=== PATIENT | male | born 1950 | race Caucasian/White ===

== ENCOUNTER 2018-09-23 02:38 | Emergency (ER) | payer MEDICARE, OTHER ==
[2018-09-23 02:49] VITALS: RESP 16
[2018-09-23] MEDS ORDERED: HYDROcodone/APAP 5-325MG 1 EACH TAB PO STA (02:54)
--- NOTE | 2018-09-23 04:00 | XR ---
EXAM: XR Pelvis Complete, 3 or More Views CLINICAL HISTORY: ITS.REASON XR Reason: Pain TECHNIQUE: Frontal and lateral or oblique views of the pelvis. COMPARISON: No relevant prior studies available. FINDINGS: Bones/joints: Unremarkable. No acute fracture. No dislocation. Soft tissues: Unremarkable. IMPRESSION: Normal pelvis x-rays.
--- NOTE | 2018-09-23 04:07 | ED ---
Lower Extremity Injury HPI - General Chief Complaint: Extremity Injury, Lower Stated Complaint: fall Time Seen by Provider: 09/23/18 02:47 Source: patient, EMS Mode of arrival: EMS Limitations: no limitations - History of Present Illness Initial Comments: 67-year-old male patient presents to the emergency department today for evaluation of left hip pain after falling from bed. Patient states that he rolled and landed on the left hip. Denies hitting his head or losing consciousness. Denies any other injuries. He denies any radiation of the pain down his leg. Denies any numbness or tingling to the extremity. Patient was able to ambulate to the ambulance stretcher. Denies taking any medication for his symptoms. Patient denies any headache, neck pain, back pain, chest pain, shortness of breath, dizziness, weakness, abdominal pain, nausea, vomiting, or difficulties with bowel movements or urination. - Related Data Home Medications Medication Instructions Recorded Confirmed Acetaminophen Tab [Tylenol] 650 mg PO Q4H 08/11/13 05/08/16 Hydrocodone/Acetaminophen [[place] 1 tab PO Q6H PRN 08/11/13 05/08/16 5-325] Ranitidine HCl 150 mg PO DAILY 08/11/13 05/08/16 ALPRAZolam [Xanax] 0.25 mg PO TID PRN 02/20/14 05/08/16 Acetaminophen Tab [Tylenol Tab] 1,000 mg PO Q6HR PRN 01/13/16 05/08/16 Cetirizine HCl 10 mg PO DAILY 01/13/16 05/08/16 Cholecalciferol [Vitamin D3 (25 1,000 unit PO DAILY 01/13/16 05/08/16 Mcg = 1000 Iu)] Cholecalciferol [Vitamin D3] 400 unit PO DAILY 01/13/16 05/08/16 Eucerin Cream 1 applic TOPICAL HS 01/13/16 05/08/16 Ibuprofen [Advil] 600 mg PO Q6H PRN 01/13/16 05/08/16 Meloxicam [Mobic] 15 mg PO DAILY 01/13/16 05/08/16 Nystatin [Nystop] 1 applic TOPICAL BID@0800,2000 01/13/16 05/08/16 Sertraline [Zoloft] 100 mg PO DAILY 01/13/16 05/08/16 Amoxic-Pot Clav 875-125Mg 1 tab PO Q12HR 05/08/16 05/08/16 [Augmentin 875-125] Multivit-Min/FA/Lycopen/Lutein 1 tab PO DAILY 05/08/16 05/08/16 [Centrum Silver Men Tablet] Mupirocin 2% Oint [Bactroban 2% 1 applic TOPICAL TID 05/08/16 05/08/16 Oint] Previous Rx's Medication Instructions Recorded Sulfamethox-Tmp 800-160Mg [Bactrim 1 tab PO Q12HR #20 tab 05/13/16 DS 800-160 mg] Allergies Allergy/AdvReac Type Severity Reaction Status Date / Time clindamycin Allergy Unknown Verified 09/23/18 02:49 Review of Systems ROS Statement: Those systems with pertinent positive or pertinent negative responses have been documented in the HPI. ROS Other: All systems not noted in ROS Statement are negative. Past Medical History Past Medical History: Diabetes Mellitus, Hyperlipidemia, Hypertension Additional Past Medical History / Comment(s): brain injury, hepatitis C History of Any Multi-Drug Resistant Organisms: MRSA Date of last positivie culture/infection: 05/08/16 MDRO Source:: LEFT LEG Past Surgical History: No Surgical Hx Reported Past Anesthesia/Blood Transfusion Reactions: No Reported Reaction Past Psychological History: No Psychological Hx Reported Smoking Status: Current every day smoker Past Alcohol Use History: Rare Past Drug Use History: None Reported General Exam Limitations: no limitations General appearance: alert, in no apparent distress, other (This is a well- developed, well-nourished adult male patient in no acute distress. Vital signs upon presentation are temperature 97.3F, pulse 57, respirations 16, blood pressure 151/77, pulse ox 97% on room air.) Eye exam: Present: normal appearance, PERRL, EOMI. Absent: scleral icterus, conjunctival injection, periorbital swelling ENT exam: Present: normal exam, normal oropharynx, mucous membranes moist Respiratory exam: Present: normal lung sounds bilaterally. Absent: respiratory distress, wheezes, rales, rhonchi, stridor Cardiovascular Exam: Present: regular rate, normal rhythm, normal heart sounds. Absent: systolic murmur, diastolic murmur, rubs, gallop, clicks Extremities exam: Present: normal inspection, full ROM, tenderness (Tenderness over the left lateral hip), normal capillary refill, other (There is no shortening or rotation noted to the left lower extremity. Skin to the left leg is pink, warm, and dry. Cap refills less than 3 seconds.). Absent: pedal edema, joint swelling, calf tenderness Course Vital Signs 09/23/18 09/23/18 02:46 04:13 Temperature 97.3 F L 98.4 F Pulse Rate 57 L 61 Respiratory 16 16 Rate Blood Pressure 151/77 148/78 O2 Sat by Pulse 97 98 Oximetry Medical Decision Making - Medical Decision Making 67 year-old male patient presented to the emergency department today for evaluation of left hip pain after falling from bed. Physical examination did reveal tenderness over the lateral hip. There is no leg shortening or rotation. Neurovascular status was intact. X-ray was obtained and showed no acute bony abnormalities. Patient did report improvement of symptoms with pain medication. He was able to ambulate. He'll be discharged home at this time to follow-up with his primary care physician for recheck in 1-2 days. Return parameters were discussed in detail. He verbalizes understanding and agrees with this plan. - Radiology Data Radiology results: report reviewed, image reviewed One view of the pelvis and 2 views of left hip are obtained. Report reviewed in its entirety. Impression by Dr. Bacon shows normal pelvis x-rays Disposition Clinical Impression: Left hip pain Disposition: HOME SELF-CARE Condition: Good Instructions (If sedation given, give patient instructions): Hip Pain (ED) Additional Instructions: Apply ice to the painful areas. Take Tylenol and Motrin for pain control. Follow-up with your primary care physician for recheck in 1-2 days. Return to the emergency department immediately for any new, worsening, or concerning symptoms. Is patient prescribed a controlled substance at d/c from ED?: No Referrals: Edin Sawyer MD [Primary Care Provider] - 1-2 days Time of Disposition: 04:07
[2018-09-23 04:14] VITALS: BP 148/78; PULSE 61; TEMP 98.4
== END 2018-09-23 05:35 | disposition home or self-care (01) ==
LOC: EEVIPCON 02:38 → EC 02:38
DX: M25.552 Pain in left hip (principal); F17.200 Nicotine dependence, unspecified, uncomplicated; Z88.1 Allergy status to other antibiotic agents; Z86.14 Personal history of Methicillin resistant Staphylococcus aureus infection; W06.XXXA Fall from bed, initial encounter; Y93.89 Activity, other specified; Y92.009 Unspecified place in unspecified non-institutional (private) residence as the place of occurrence of the external cause; Z79.899 Other long term (current) drug therapy
CPT/HCPCS: 73502; 99284

== ENCOUNTER 2019-10-02 20:40 | Emergency (ER) | payer MEDICARE, OTHER ==
[2019-10-02 20:58] VITALS: TEMP 98.2
[2019-10-02] MEDS ORDERED: HYDROcodone/APAP 5-325MG 1 EACH TAB PO STA (21:12)
--- NOTE | 2019-10-02 21:39 | XR ---
EXAMINATION TYPE: XR lumbar spine 2 or 3V DATE OF EXAM: 10/02/2019 CLINICAL HISTORY: pain TECHNIQUE: Three views of the lumbar spine are submitted. COMPARISON: None. FINDINGS: Minimal superior endplate loss of height involving L4 of uncertain age and/or etiology. The remaining lumbar segments are intact. Mild degenerative disc space narrowing and spondylosis. Facet joint arth ropathy. IMPRESSION: Minimal superior endplate loss of height involving L4 of uncertain age and/or etiology.
--- NOTE | 2019-10-02 22:05 | CT ---
EXAMINATION TYPE: CT brain leonine wo con DATE OF EXAM: 10/02/2019 COMPARISON: 01/13/2016 HISTORY: pt fall. No loc CT DLP: 2244.[address] of the brain was performed. The ventricles, basal cisterns and sulci overlying the cerebral convexities demonstrate moderate enla rgement. There is no evidence for intracranial hemorrhage or sulcal effacement. There is decreased attenuatio n about the periventricular white matter and deep white matter of both cerebral hemispheres, compatib le with chronic small vessel ischemia. No mass effects are seen. If symptoms persist consider MRI. Osseous calvarium is intact. Left frontal scalp hematoma. IMPRESSION: 1. Age related atrophic and chronic small vessel ischemic change without acute intracranial process seen at this time. CT Cervical Spine: Unenhanced CT of the cervical spine was performed with bone and soft tissue window settings submitted . Coronal and sagittal reconstruction is obtained. There is normal alignment and prevertebral soft tissues. No evidence for acute cervical fracture . Scattered degenerative disc disease and spondylosis. Biapical scarring. IMPRESSION: 1. No evidence for acute fracture or subluxation of the cervical spine.
--- NOTE | 2019-10-02 22:11 | ED ---
Back Pain HPI - General Chief Complaint: Back Pain/Injury Stated Complaint: Fall Time Seen by Provider: 10/02/19 21:01 Source: patient, Caregiver Limitations: no limitations - History of Present Illness Initial Comments: 69-year-old male presenting for follow-up. Patient tried to ambulate from his wheelchair to his recliner which she frequently does he fell backwards he states he did hit his head. He denies loss of consciousness. After review medications. Patient is on anticoagulation therapy. Patient denies any neck pain headache nausea vomiting. Patient denies any visual changes. He states he does have some low back pain he states it is chronic however slightly worsened since the fall. Patient has chronic bilateral leg weakness denies any increase. Denies sensation of the legs, incontinence. Patient has no additional complaints. Appears well on arrival. - Related Data Home Medications Medication Instructions Recorded Confirmed Acetaminophen Tab [Tylenol] 650 mg PO Q4H 08/11/13 05/08/16 Hydrocodone/Acetaminophen [[place] 1 tab PO Q6H PRN 08/11/13 05/08/16 5-325] Ranitidine HCl 150 mg PO DAILY 08/11/13 05/08/16 ALPRAZolam [Xanax] 0.25 mg PO TID PRN 02/20/14 05/08/16 Acetaminophen Tab [Tylenol Tab] 1,000 mg PO Q6HR PRN 01/13/16 05/08/16 Cetirizine HCl 10 mg PO DAILY 01/13/16 05/08/16 Cholecalciferol [Vitamin D3 (25 1,000 unit PO DAILY 01/13/16 05/08/16 Mcg = 1000 Iu)] Cholecalciferol [Vitamin D3] 400 unit PO DAILY 01/13/16 05/08/16 Eucerin Cream 1 applic TOPICAL HS 01/13/16 05/08/16 Ibuprofen [Advil] 600 mg PO Q6H PRN 01/13/16 05/08/16 Meloxicam [Mobic] 15 mg PO DAILY 01/13/16 05/08/16 Nystatin [Nystop] 1 applic TOPICAL BID@0800,199901/13/16 05/08/16 Sertraline [Zoloft] 100 mg PO DAILY 01/13/16 05/08/16 Amoxic-Pot Clav 875-125Mg 1 tab PO Q12HR 05/08/16 05/08/16 [Augmentin 875-125] Multivit-Min/FA/Lycopen/Lutein 1 tab PO DAILY 05/08/16 05/08/16 [Centrum Silver Men Tablet] Mupirocin 2% Oint [Bactroban 2% 1 applic TOPICAL TID 05/08/16 05/08/16 Oint] Previous Rx's Medication Instructions Recorded Sulfamethox-Tmp 800-160Mg [Bactrim 1 tab PO Q12HR #20 tab 05/13/16 DS 800-160 mg] Allergies Allergy/AdvReac Type Severity Reaction Status Date / Time clindamycin Allergy Unknown Verified 10/02/19 20:57 Review of Systems ROS Statement: Those systems with pertinent positive or pertinent negative responses have been documented in the HPI. ROS Other: All systems not noted in ROS Statement are negative. Past Medical History Past Medical History: Diabetes Mellitus, Hyperlipidemia, Hypertension Additional Past Medical History / Comment(s): brain injury, hepatitis C History of Any Multi-Drug Resistant Organisms: MRSA Date of last positivie culture/infection: 05/08/16 MDRO Source:: LEFT LEG Past Surgical History: No Surgical Hx Reported Past Anesthesia/Blood Transfusion Reactions: No Reported Reaction Past Psychological History: No Psychological Hx Reported Smoking Status: Current every day smoker Past Alcohol Use History: Rare Past Drug Use History: None Reported General Exam - General Exam Comments Initial Comments: General: The patient is awake and alert, in no distress Eye: Pupils are equal, round and reactive to light, extra-ocular movements are intact. No nystagmus. There is normal conjunctiva bilaterally. No signs of icterus. Ears, nose, mouth and throat: There are moist mucous membranes and no oral lesions. No raccoon or Carrillo sign of scalp hematomas noted Neck: The neck is supple, there is no tenderness or JVD. Cardiovascular: There is a regular rate and rhythm. No murmur, rub or gallop is appreciated. Respiratory: Lungs are clear to auscultation, respirations are non-labored, breath sounds are equal. No wheezes, stridor, rales, or rhonchi. Gastrointestinal: Soft, non-distended, non-tender abdomen without masses or organomegaly noted. There is no rebound or guarding present. Musculoskeletal: Normal inspection cervicothoracic and lumbar spine no midline tenderness palpation of cervical spine, thoracic or lumbar. There is paraspinal tenderness. Normal ROM, no tenderness. Strength 4/5 of the LE b/l equal. Sensation intact of the LE b/l. Radial pulses equal bilaterally 2+. Neurological: A&O x 3. CN II-XII intact grossly, There are no obvious motor or sensory deficits. Coordination appears grossly intact. Speech is normal. Skin: Skin is warm and dry and no rashes or lesions are noted. Psychiatric: Cooperative, flat affect Limitations: no limitations Course Vital Signs 10/02/19 10/02/19 20:52 22:39 Temperature 98.2 F Pulse Rate 78 67 Respiratory 18 17 Rate Blood Pressure 118/72 135/77 O2 Sat by Pulse 94 L 94 L Oximetry Medical Decision Making - Medical Decision Making CT (-). XR age indiscriminate L4 endplate abnormality felt likely to be old given no midline tenderness. No other complaints Patient appears well at baseline per air transportation provider. Patietn discharged with PCP f/u. Disposition Clinical Impression: Low back pain, Fall, Head injury Disposition: HOME SELF-CARE Condition: Good Instructions (If sedation given, give patient instructions): Acute Low Back Pain (ED) Additional Instructions: Please use medication as discussed. Please follow-up with family doctor in the next 2 days. Please return to emergency room if the symptoms increase or worsen or for any other concerns. Is patient prescribed a controlled substance at d/c from ED?: No Referrals: Edin Sawyer MD [Primary Care Provider] - 1-2 days Time of Disposition: 22:11
[2019-10-02 22:40] VITALS: BP 135/77; PULSE 67; RESP 17
== END 2019-10-02 22:38 | disposition home or self-care (01) ==
LOC: EC 20:40
DX: S09.90XA Unspecified injury of head, initial encounter (principal); M54.5 Low back pain; F17.200 Nicotine dependence, unspecified, uncomplicated; Z88.1 Allergy status to other antibiotic agents; Z86.14 Personal history of Methicillin resistant Staphylococcus aureus infection; W07.XXXA Fall from chair, initial encounter; Y93.89 Activity, other specified; Y92.009 Unspecified place in unspecified non-institutional (private) residence as the place of occurrence of the external cause
CPT/HCPCS: 70450; 72100; 72125; 99284

== ENCOUNTER 2021-09-02 18:34 | Emergency (ER) | payer MEDICARE, OTHER ==
[2021-09-02 18:44] VITALS: RESP 16; TEMP 99.5
[2021-09-02] MEDS ORDERED: SODIUM CHLORIDE 0.9% 500 ML 500 ML IV STA (19:23)
[2021-09-02] MEDS ORDERED: ACETAMINOPHEN TAB 500 MG TAB PO STA (19:24)
[2021-09-02] MEDS ORDERED: MD COMMUNICATION TO PHARMACY 1 EACH MISC PO ONE (19:25)
--- NOTE | 2021-09-02 19:30 | ED ---
Nausea/Vomiting/Diarrhea HPI - General Chief complaint: Nausea/Vomiting/Diarrhea Stated complaint: covid+ Time Seen by Provider: 09/02/21 19:17 Source: patient Mode of arrival: EMS Limitations: altered mental status - History of Present Illness Initial comments: This is a 70-year-old male sent by [facility] for cough, diarrhea, and some nausea. Patient tested positive for COVID-19 and apparently was set here to get a prescription for Paxlovid. As I enter the room, patient has minimal complaints. Complaining of a mild cough, no pain. States he has had some diarrhea. No headache, no changes in vision or hearing, no sore throat or difficulty with speech, no neck pain, no chest pain or shortness of breath, no abdominal pain, no vomiting, no changes in urination, no numbness or tingling, no extremity pain, no skin rashes or lesions. Past medical, surgical, social, and family history reviewed. MD complaint: nausea, diarrhea - Related Data Home Medications Medication Instructions Recorded Confirmed Acetaminophen Tab [Tylenol] 650 mg PO Q4H 08/11/13 05/08/16 Hydrocodone/Acetaminophen [[place] 1 tab PO Q6H PRN 08/11/13 05/08/16 5-325] raNITIdine HCL [Zantac] 150 mg PO DAILY 08/11/13 05/08/16 ALPRAZolam [Xanax] 0.25 mg PO TID PRN 02/20/14 05/08/16 Acetaminophen Tab [Tylenol Tab] 1,000 mg PO Q6HR PRN 01/13/16 05/08/16 Cetirizine HCl 10 mg PO DAILY 01/13/16 05/08/16 Cholecalciferol [Vitamin D3 (10 400 unit PO DAILY 01/13/16 05/08/16 Mcg = 400 Iu)] Cholecalciferol [Vitamin D3 (25 1,000 unit PO DAILY 01/13/16 05/08/16 Mcg = 1000 Iu)] Eucerin Cream 1 applic TOPICAL HS 01/13/16 05/08/16 Ibuprofen [Advil] 600 mg PO Q6H PRN 01/13/16 05/08/16 Meloxicam [Mobic] 15 mg PO DAILY 01/13/16 05/08/16 Nystatin [Nystop] 1 applic TOPICAL BID@0800,2000 01/06/16 04/01/17 Sertraline [Zoloft] 100 mg PO DAILY 01/13/16 05/08/16 Amoxic-Pot Clav 875-125Mg 1 tab PO Q12HR 05/08/16 05/08/16 [Augmentin 875-125] Multivit-Min/FA/Lycopen/Lutein 1 tab PO DAILY 05/08/16 05/08/16 [Centrum Silver Men Tablet] Mupirocin 2% Oint [Bactroban 2% 1 applic TOPICAL TID 05/08/16 05/08/16 Oint] Previous Rx's Medication Instructions Recorded Sulfamethox-Tmp 800-160Mg [Bactrim 1 tab PO Q12HR #20 tab 05/13/16 DS 800-160 mg] Allergies Allergy/AdvReac Type Severity Reaction Status Date / Time clindamycin Allergy Unknown Verified 09/02/21 18:44 Review of Systems ROS Statement: Those systems with pertinent positive or pertinent negative responses have been documented in the HPI. ROS Other: All systems not noted in ROS Statement are negative. Past Medical History Past Medical History: Diabetes Mellitus, Hyperlipidemia, Hypertension Additional Past Medical History / Comment(s): brain injury, hepatitis C History of Any Multi-Drug Resistant Organisms: MRSA Date of last positivie culture/infection: 05/08/16 MDRO Source:: LEFT LEG Past Surgical History: No Surgical Hx Reported Past Anesthesia/Blood Transfusion Reactions: No Reported Reaction Past Psychological History: No Psychological Hx Reported Smoking Status: Current every day smoker Past Alcohol Use History: Rare Past Drug Use History: None Reported General Exam - General Exam Comments Initial Comments: Vital signs reviewed, SpO2 94% on room air. Patient in no distress otherwise. Appears to be adequately hydrated. Limitations: no limitations (Minimal due to patient's chronic condition) General appearance: alert, in no apparent distress Head exam: Present: atraumatic, normocephalic, normal inspection Eye exam: Present: normal appearance, PERRL, EOMI. Absent: scleral icterus, conjunctival injection, periorbital swelling ENT exam: Present: normal exam, mucous membranes moist Neck exam: Present: normal inspection. Absent: tenderness, meningismus, lymphadenopathy Respiratory exam: Present: normal lung sounds bilaterally. Absent: respiratory distress, wheezes, rales, rhonchi, stridor Cardiovascular Exam: Present: regular rate, normal rhythm, normal heart sounds. Absent: systolic murmur, diastolic murmur, rubs, gallop, clicks GI/Abdominal exam: Present: soft, normal bowel sounds. Absent: distended, tenderness, guarding, rebound, rigid Extremities exam: Present: normal inspection, full ROM, normal capillary refill. Absent: tenderness, pedal edema, joint swelling, calf tenderness Back exam: Present: normal inspection Neurological exam: Present: alert, oriented X3, CN II-XII intact Psychiatric exam: Present: normal affect, normal mood Skin exam: Present: warm, dry, intact, normal color. Absent: rash Course Vital Signs 09/02/21 18:36 Temperature 99.5 F Pulse Rate 77 Respiratory 16 Rate Blood Pressure 118/61 O2 Sat by Pulse 94 L Oximetry - Reevaluation(s) Reevaluation #1: 09/02/21 20:50 Medical record is reviewed Symptoms are improved here in the emergency department Patient is informed of results and questions answered Patient in no distress Patient no acute distress. All findings discussed with the staff member from [facility]. Paxlovid prescription was sent to the pharmacy. I did again attempt to get the first dose here which was unsuccessful. Medical Decision Making - Medical Decision Making Patient had no acute findings on x-ray. Was in no respiratory distress. I'm going to hold any corticosteroid treatment as the patient is diabetic. Patient in no significant distress. Patient was told to return to the ER for any signs or symptoms worsen. Told to return immediately if any other problems arise. All questions answered. Tr eatment plan discussed. Patient in agreement Every effort has been made to ensure accuracy of this dictation. However, due to the limitations of electronic medical records and dictation devices, errors in charting still occur. Discussed treatment plan with the patient's caregiver from [facility]. Also discussed follow-up with the visiting physicians. Supervising physician is Dr. Roman - Lab Data Result diagrams: 09/02/21 19:40 09/02/21 19:40 Lab Results 09/02/21 09/02/21 09/02/21 Range/Units 19:40 19:40 19:40 WBC 5.3 (3.8-10.6) k/uL RBC 4.65 (4.30-5.90) m/uL Hgb 14.3 (13.0-17.5) gm/dL Hct 43.2 (39.0-53.0) % MCV 92.9 (80.0-100.0) fL MCH 30.8 (25.0-35.0) pg MCHC 33.1 (31.0-37.0) g/dL RDW 15.0 (11.5-15.5) % Plt Count 159 (150-450) k/uL MPV 7.7 Neutrophils % 50 % Lymphocytes % 35 % Monocytes % 11 % Eosinophils % 1 % Basophils % 1 % Neutrophils # 2.6 (1.3-7.7) k/uL Lymphocytes # 1.8 (1.0-4.8) k/uL Monocytes # 0.6 (0-1.0) k/uL Eosinophils # 0.0 (0-0.7) k/uL Basophils # 0.0 (0-0.2) k/uL Sodium 135 L (137-145) mmol/L Potassium 4.6 (3.5-5.1) mmol/L Chloride 98 (98-107) mmol/L Carbon Dioxide 31 H (22-30) mmol/L Anion Gap 6 mmol/L BUN 21 H (9-20) mg/dL Creatinine 0.84 (0.66-1.25) mg/dL Est GFR (CKD-EPI)AfAm >90 (>60 ml/min/1.73 sqM) Est GFR (CKD-EPI)NonAf >90 (>60 ml/min/1.73 sqM) Glucose 122 H (74-99) mg/dL POC Glucose (mg/dL) (70-110) mg/dL POC Glu Ethics Officer ID Plasma Lactic Acid Richie 0.9 (0.7-2.0) mmol/L Calcium 8.5 (8.4-10.2) mg/dL Magnesium 1.8 (1.6-2.3) mg/dL Total Bilirubin 1.0 (0.2-1.3) mg/dL AST 67 H (17-59) U/L ALT 88 H (4-49) U/L Alkaline Phosphatase 97 (38-126) U/L Total Protein 7.0 (6.3-8.2) g/dL Albumin 3.9 (3.5-5.0) g/dL 07/27/22 Range/Units 19:45 WBC (3.8-10.6) k/uL RBC (4.30-5.90) m/uL Hgb (13.0-17.5) gm/dL Hct (39.0-53.0) % MCV (80.0-100.0) fL MCH (25.0-35.0) pg MCHC (31.0-37.0) g/dL RDW (11.5-15.5) % Plt Count (150-450) k/uL MPV Neutrophils % % Lymphocytes % % Monocytes % % Eosinophils % % Basophils % % Neutrophils # (1.3-7.7) k/uL Lymphocytes # (1.0-4.8) k/uL Monocytes # (0-1.0) k/uL Eosinophils # (0-0.7) k/uL Basophils # (0-0.2) k/uL Sodium (137-145) mmol/L Potassium (3.5-5.1) mmol/L Chloride (98-107) mmol/L Carbon Dioxide (22-30) mmol/L Anion Gap mmol/L BUN (9-20) mg/dL Creatinine (0.66-1.25) mg/dL Est GFR (CKD-EPI)AfAm (>60 ml/min/1.73 sqM) Est GFR (CKD-EPI)NonAf (>60 ml/min/1.73 sqM) Glucose (74-99) mg/dL POC Glucose (mg/dL) 120 H (70-110) mg/dL POC Glu Ethics Officer ID Davida Montes Plasma Lactic Acid Richie (0.7-2.0) mmol/L Calcium (8.4-10.2) mg/dL Magnesium (1.6-2.3) mg/dL Total Bilirubin (0.2-1.3) mg/dL AST (17-59) U/L ALT (4-49) U/L Alkaline Phosphatase (38-126) U/L Total Protein (6.3-8.2) g/dL Albumin (3.5-5.0) g/dL Disposition Clinical Impression: COVID-19 Disposition: HOME SELF-CARE Condition: Good Instructions (If sedation given, give patient instructions): COVID-19 (Coronavirus Disease 2019) (ED) Additional Instructions: SELF QUARANTINE DISCHARGE: As you are at risk for symptoms due to coronavirus, please stay home and stay away from others as much as possible. Please maintain social distance of 6 feet if possible. You should not return to work until at least 3 days (72 hours) have passed since recovery of symptoms. This defined as resolution of fever without the use of fever reducing medicines and improvement in respiratory symptoms (e.g,, cough, shortness of breath) Isolation can end at least 5 days after symptom onset and after fever ends for 24 hours (without the use of fever-reducing medication) and symptoms are improving, if these people can continue to properly wear a well-fitted mask around others for 5 more days after the 5-day isolation period. If you're still having symptoms at the end of 5 day period, isolate for an additional 5 days. More information about what to do if you are sick can be found on the CDC website at https://www.cdc.gov/coron avirus/2019-ncov/sz-ipq-hnk-sick/vhutp-axdm-qugm.html Expect the symptoms to last for 7-14 days from onset. Use acetaminophen (Tylenol) as needed for discomfort. You can take a maximum of 1 gram every 6 hours for discomfort, with your total dose in 24 hours not exceeding 4 grams. Be sure to maintain hydration. Drink continuous water and/or items high in vitamin C, such as orange juice and/or lemonade. For a cough you may take Mucinex or Robitussin. Also consider the use of Vicks Vapor Rub or your chest when you sleep. Use a humidifier that is cleaned frequently, in the bedroom at night. For Nausea /Vomiting/Diarrhea associated with your Illness: o Small frequent sips of room temperature liquids. o Diet: [employer] - If you are still experiencing discomfort and/or nausea please slowly advancing your diet using the BRAT Diet = bananas, rice, apples/apple sauce, toast. o With diarrhea avoid any dairy for 48 hours after symptoms resolved. o Continue with activity as tolerated. If your symptoms do get worse and you believe that the upper respiratory infection has developed into something else, such as pneumonia or severe dehydration, please return to the emergency department or follow-up with your primary care. But expect to be symptomatic for the days as indicated above Take the antiviral medication as directed pickup the prescription at the pharmacy tomorrow Follow-up with your regular physician as directed. Return to the ER immediately if any symptoms worsen, new symptoms arise, or any other problems develop. Is patient prescribed a controlled substance at d/c from ED?: No Referrals: Edin Sawyer MD [Primary Care Provider] - 1-2 days Time of Disposition: 20:42
[2021-09-02 19:46] LABS: Glucose,Whole Blood 120 mg/dL (70-110)
[2021-09-02 19:52] LABS: Basophils % (A) 1 %; Eosinophils % (A) 1 %; HCT 43.2 % (39.0-53.0); HGB 14.3 gm/dL (13.0-17.5); Lymphocytes # (A) 1.8 k/uL (1.0-4.8); Lymphocytes % (A) 35 %; MCH 30.8 pg (25.0-35.0); MCHC 33.1 g/dL (31.0-37.0); MCV 92.9 fL (80.0-100.0); Mean Platelet Volume 7.7; Monocytes # (A) 0.6 k/uL (0-1.0); Monocytes % (A) 11 %; Neutrophils # (A) 2.6 k/uL (1.3-7.7); Neutrophils % (A) 50 %; Platelet Count 159 k/uL (150-450); RBC 4.65 m/uL (4.30-5.90); WBC 5.3 k/uL (3.8-10.6)
--- NOTE | 2021-09-02 19:59 | XR ---
EXAMINATION TYPE: XR chest 1V portable DATE OF EXAM: 09/02/2021 7:55 PM COMPARISON: Chest radiographs from 01/13/2016 TECHNIQUE: XR chest 1V portable Portable AP radiograph of the chest. CLINICAL INDICATION:Male, 70 years old with history of Cough; FINDINGS: Lungs/Pleura: Prominent interstitial lung markings are seen scattered throughout the lungs. No eviden ce of focal consolidation, pneumothorax or pleural effusion. Pulmonary vascularity: Unremarkable. Heart/mediastinum: Cardiomediastinal silhouette is unremarkable. Musculoskeletal: No acute osseous pathology. Other: The colon is above the right hepatic lobe. IMPRESSION: Low lung volumes with underlying chronic interstitial lung disease and COPD.
[2021-09-02 20:04] LABS: ALT 88 U/L (4-49); AST 67 U/L (17-59); African American GFR (CKD) >90 (>60 ml/min/1.73 sqM); Albumin 3.9 g/dL (3.5-5.0); Alkaline Phosphatase 97 U/L (38-126); Anion Gap 6 mmol/L; Blood Urea Nitrogen 21 mg/dL (9-20); Calcium 8.5 mg/dL (8.4-10.2); Carbon Dioxide 31 mmol/L (22-30); Chloride 98 mmol/L (98-107); Glucose 122 mg/dL (74-99); Magnesium 1.8 mg/dL (1.6-2.3); Non-African American GFR(CKD) >90 (>60 ml/min/1.73 sqM); Potassium 4.6 mmol/L (3.5-5.1); Sodium 135 mmol/L (137-145)
[2021-09-02 21:16] VITALS: BP 99/51; PULSE 61
== END 2021-09-02 22:53 | disposition home or self-care (01) ==
LOC: EC 18:34
DX: U07.1 COVID-19 (principal); E11.9 Type 2 diabetes mellitus without complications; I10 Essential (primary) hypertension; E78.5 Hyperlipidemia, unspecified; F17.200 Nicotine dependence, unspecified, uncomplicated; Z88.1 Allergy status to other antibiotic agents
CPT/HCPCS: 36415; 71045; 80053; 83605; 83735; 85025; 96360; 99284

== ENCOUNTER → 2022-04-27 | Outpatient (CLI) | payer MEDICARE, OTHER ==
[2022-04-27 20:41] LABS: Hepatitis B Surface Antigen Nonreactive (Nonreactive)
== END | disposition home or self-care (01) ==
LOC: LABWHC1 10:50
PROVIDERS: ATTEND Nurse Practitioner Family
DX: B18.2 Chronic viral hepatitis C (principal)
CPT/HCPCS: 36415; 82105; 86704; 87340

== ENCOUNTER 2022-11-28 18:10 | Emergency (ER) | payer MEDICARE, OTHER ==
[2022-11-28 18:38] VITALS: BP 146/88; PULSE 68; RESP 15; TEMP 98.2
--- NOTE | 2022-11-28 18:39 | ED ---
Fall HPI - General Chief Complaint: Fall Stated Complaint: Fall Time Seen by Provider: 11/28/22 18:19 Source: Caregiver Mode of arrival: EMS - History of Present Illness Initial Comments: The patient is a 72-year-old gentleman with a history of a traumatic brain injury who presents to the emergency room accompanied by a marking room supervisor at his [facility] who states that the patient unbuckled his wheelchair seatbelt and went to pick something up off the ground and fell forward. He hit his head on the ground and was complaining of neck pain. He comes in a c-collar. He is alert and at his baseline at this time with no signs of trauma. Patient denies any pain in his arms or legs. - Related Data Home Medications Medication Instructions Recorded Confirmed Acetaminophen Tab [Tylenol] 650 mg PO Q4H 08/11/13 05/08/16 Hydrocodone/Acetaminophen [[place] 1 tab PO Q6H PRN 08/11/13 05/08/16 5-325] raNITIdine HCL [Zantac] 150 mg PO DAILY 08/11/13 05/08/16 ALPRAZolam [Xanax] 0.25 mg PO TID PRN 02/20/14 05/08/16 Acetaminophen Tab [Tylenol Tab] 1,000 mg PO Q6HR PRN 01/13/16 05/08/16 Cetirizine HCl 10 mg PO DAILY 01/13/16 05/08/16 Cholecalciferol [Vitamin D3 (10 400 unit PO DAILY 01/13/16 05/08/16 Mcg = 400 Iu)] Cholecalciferol [Vitamin D3 (25 1,000 unit PO DAILY 01/13/16 05/08/16 Mcg = 1000 Iu)] Eucerin Cream 1 applic TOPICAL HS 01/13/16 05/08/16 Ibuprofen [Advil] 600 mg PO Q6H PRN 01/13/16 05/08/16 Meloxicam [Mobic] 15 mg PO DAILY 01/13/16 05/08/16 Nystatin [Nystop] 1 applic TOPICAL BID@0800,2000 01/13/16 05/08/16 Sertraline [Zoloft] 100 mg PO DAILY 01/13/16 05/08/16 Amoxic-Pot Clav 875-125Mg 1 tab PO Q12HR 05/08/16 05/08/16 [Augmentin 875-125] Mupirocin 2% Oint [Bactroban 2% 1 applic TOPICAL TID 05/08/16 05/08/16 Oint] Mv-Min/Folic/K1/Lycopen/Lutein 1 tab PO DAILY 05/08/16 05/08/16 [Centrum Silver Men Tablet] Previous Rx's Medication Instructions Recorded Sulfamethox-Tmp 800-160Mg [Bactrim 1 tab PO Q12HR #20 tab 05/13/16 DS 800-160 mg] Allergies Allergy/AdvReac Type Severity Reaction Status Date / Time clindamycin Allergy Unknown Verified 09/02/21 18:44 Review of Systems ROS Statement: Those systems with pertinent positive or pertinent negative responses have been documented in the HPI. ROS Other: All systems not noted in ROS Statement are negative. Past Medical History Past Medical History: Diabetes Mellitus, GERD/Reflux, Hyperlipidemia, Hypertension Additional Past Medical History / Comment(s): brain injury, hepatitis C History of Any Multi-Drug Resistant Organisms: MRSA Date of last positivie culture/infection: 05/08/16 MDRO Source:: LEFT LEG Past Surgical History: Bowel Resection Past Anesthesia/Blood Transfusion Reactions: No Reported Reaction Past Psychological History: Depression Smoking Status: Current every day smoker Past Alcohol Use History: Rare Past Drug Use History: None Reported General Exam Limitations: physical limitation General appearance: alert Head exam: Present: atraumatic, other (No signs of head trauma no hematomas n oted. No hemotympanum bilaterally. Pupils are equal and reactive bilaterally. Negative bourne sign or raccoon eyes.) Eye exam: Present: normal appearance, PERRL Pupils: Present: normal accommodation ENT exam: Present: normal exam Neck exam: Present: normal inspection, other (No specific pain with palpation over the midline or vertebral point tenderness.) Respiratory exam: Present: normal lung sounds bilaterally Cardiovascular Exam: Present: regular rate Extremities exam: Present: normal inspection Neurological exam: Present: alert Skin exam: Present: warm, dry Course Vital Signs 11/28/22 18:17 Temperature 98.2 F Pulse Rate 68 Respiratory 15 Rate Blood Pressure 146/88 O2 Sat by Pulse 96 Oximetry - Reevaluation(s) Reevaluation #1: 11/28/22 21:37 C-collar was removed after CT of the head and neck were negative. Patient is eager to leave. I discussed imaging results with his marking room supervisor. CT of the C- spine and head are negative. Discussed signs to return to the emergency room including but not limited to any lethargy, vomiting abnormal behavior, abnormal speech or new concerning symptoms. They understand and agree to this plan. Medical Decision Making - Medical Decision Making Was pt. sent in by a medical professional or institution (, FLORINDA, CLERICAL ADJUSTER, urgent care, hospital, or jail...) When possible be specific @ -[No] Did you speak to anyone other than the patient for history (EMS, parent, family, police, friend...)? What history was obtained from this source @ -CHAVO marking room supervisor Did you review nursing and triage notes (agree or disagree)? Why? @ -[I reviewed and agree with nursing and triage notes] Were old charts reviewed (outside hosp., previous admission, EMS record, old EKG, old radiological studies, urgent care reports/EKG's, jail records)? Report findings @ -Yes old charts were reviewed Differential Diagnosis (chest pain, altered mental status, abdominal pain women, abdominal pain men, vaginal bleeding, weakness, fever, dyspnea, syncope, headache, dizziness, GI bleed, back pain, seizure, CVA, palpatations, mental health, musculoskeletal)? @ -Head injury, skull fracture, hemorrhage, contusion of the scalp, neck strain, herniated disc, compression fracture of the vertebrae EKG interpreted by me (3pts min.). @ -[As above] X-rays interpreted by me (1pt min.). @ -[None done] CT interpreted by me (1pt min.). @ -CT shows chronic changes of the cervical spine, no mass or hemorrhage seen on the CT of the head. Radiology report is pending for confirmation of acute changes. U/S interpreted by me (1pt. min.). @ -[None done] What testing was considered but not performed or refused? (CT, X-rays, U/S, labs)? Why? @ -[None] What meds were considered but not given or refused? Why? @ -[None] Did you discuss the management of the patient with other professionals (professionals i.e. FLORINDA Hogan, CLERICAL ADJUSTER, lab, RT, psych nurse, certified social workers in health care, brush maker, teacher, loan officer assistant, case management associate)? Give summary @ -I discussed patient's symptoms are And disposition with attending ED physician Dr. Reddy today. Was smoking cessation discussed for >3mins.? @ -[No] Was critical care preformed (if so, how long)? @ -[No] Were there social determinants of health that impacted care today? How? (Homelessness, low income, unemployed, alcoholism, drug addiction, transportation, low edu. Level, literacy, decrease access to med. care, penitentiary, rehab)? @ -[No] Was there de-escalation of care discussed even if they declined (Discuss DNR or withdrawal of care, Hospice)? DNR status @ -[No] What co-morbidities impacted this encounter? (DM, HTN, Smoking, COPD, CAD, Cancer, CVA, ARF, Chemo, Hep., AIDS, mental health diagnosis, sleep apnea, morbid obesity)? @ -Previous TBI with cognitive delayed Was patient admitted / discharged? Hospital course, mention meds given and route, prescriptions, significant lab abnormalities, going to OR and other pertinent info. @ -Is no signs of a cerebral hemorrhage or skull fracture seen on CT or physical exam. C-spine shows degenerative changes with no acute changes. Patient is stable to follow up as an outpatient. I discussed signs return to the emergency room with the marking room supervisor including but not limited to any abnormal behavior, lethargy, vomiting or any concerning symptoms. Undiagnosed new problem with uncertain prognosis? @ -[No] Drug Therapy requiring intensive monitoring for toxicity (Heparin, Nitro, Insulin, Cardizem)? @ -[No] Were any procedures done? @ -[No] Diagnosis/symptom? @ -Fall, head injury without loss consciousness, neck strain, degenerative disc disease of the cervical spine Acute, or Chronic, or Acute on Chronic? @ -[default] Uncomplicated (without systemic symptoms) or Complicated (systemic symptoms)? @ -[default] Side effects of treatment? @ -[No] Exacerbation, Progression, or Severe Exacerbation? @ -[No] Poses a threat to life or bodily function? How? (Chest pain, [place], [place], pneumonia, PE, COPD, DKA, ARF, appy, cholecystitis, CVA, Diverticulitis, Homicidal, Suicidal, threat to staff... and all critical care pts) @ -[No] - Radiology Data Radiology results: report reviewed, image reviewed Disposition Clinical Impression: Fall, Head injury without concussion or intracranial hemorrhage, Head injury with loss of consciousness, Degenerative disc disease, Neck pain Disposition: HOME SELF-CARE Condition: Good Instructions (If sedation given, give patient instructions): Fall Prevention for Older Adults (ED), Head Injury (ED), Fall Prevention (ED), Degenerative Disc Disease (ED), Neck Pain (ED), Acute Neck Pain (ED) Is patient prescribed a controlled substance at d/c from ED?: No Referrals: Edin Sawyer MD [Primary Care Provider] - 1-2 days Time of Disposition: 21:30
--- NOTE | 2022-11-28 20:35 | CT ---
EXAMINATION TYPE: CT brain cspine wo con CT DLP: 1499.2 mGycm, Automated exposure control for dose reduction was used. DATE OF EXAM: 11/28/2022 8:24 PM COMPARISON: None. CLINICAL INDICATION:Male, 72 years old with history of pain; fall, hit top of head, hematoma, h/o kyp hosis TECHNIQUE: Brain: Multiple axial CT images of the brain were obtained without IV contrast. Cspine: Axial CT images from the skull base to the inferior aspect of T2 we obtained without intraven ous contrast. Coronal and sagittal reformatted images were also reviewed. FINDINGS: Brain: Extra-axial spaces: No abnormal extra-axial fluid collections. Ventricular system: Dilatation in proportion to cerebral atrophy. Cerebral parenchyma: Cerebral atrophy. No acute intraparenchymal hemorrhage or mass effect. The andersen -white junction is well differentiated. Scattered hypoattenuating areas are seen within the white mat ter. Cerebellum: Unremarkable. Mass effect: No evidence of midline shift. Intracranial vasculature: Atherosclerotic calcifications of the intracranial vessels. Soft tissues: No large hematoma visualized. Calvarium/osseous structures: No depressed skull fracture. Paranasal sinuses and mastoid air cells: Mild scattered mucosal thickening and or secretions. Visualized orbits: Orbital contents are intact. Cervical spine: Fracture: None. Osseous structures: Multilevel degenerative disc disease changes with endplate spurring and disc oste ophyte complex's. Vertebral alignment: Within normal limits. Spinal canal/Neural Foramina: No evidence of significant spinal canal narrowing. No evidence for sign ificant neural foraminal stenosis. Neck soft tissues: Prevertebral soft tissues are within normal limits. Other: The airway is patent. The lung apices are clear. Atherosclerosis of the carotid bifurcations. IMPRESSION: 1. No acute intracranial process. No large hematoma visualized. 2. Nonspecific white matter changes, likely secondary to chronic small vessel ischemic disease. 3. No evidence of cervical spine fracture. 4. Moderate multilevel degenerative disc disease.
== END 2022-11-28 22:08 | disposition home or self-care (01) ==
LOC: EC 18:10
DX: S06.0X0A Concussion without loss of consciousness, initial encounter (principal); S16.1XXA Strain of muscle, fascia and tendon at neck level, initial encounter; M50.30 Other cervical disc degeneration, unspecified cervical region; E11.9 Type 2 diabetes mellitus without complications; I10 Essential (primary) hypertension; F32.A Depression, unspecified; F17.200 Nicotine dependence, unspecified, uncomplicated; Z79.899 Other long term (current) drug therapy; Z88.1 Allergy status to other antibiotic agents; W18.09XA Striking against other object with subsequent fall, initial encounter
CPT/HCPCS: 70450; 72125; 99285